=== PATIENT | female | born 1955 | race Caucasian/White ===

== ENCOUNTER 2022-03-12 21:59 | Inpatient (IN) ==
[2022-03-13] MEDS ORDERED: Iopamidol - 370 500 ML MLS IVP ONE (00:11)
[2022-03-13] MEDS ORDERED: *HR* Labetalol 20 MG/4 ML SYRINGE IVP ONE (00:11)
[2022-03-13 00:45] LABS: Basophils # 0.1 K/mcL (0.0-0.2); Basophils % 0.3 %; Eosinophils % 0.1 %; Hematocrit 46.2 % (35.3-44.9); Hemoglobin 16.3 g/dL (11.5-15.4); Immature Granulocytes % 0.4 % (0-4); Lymphocytes # 1.9 K/mcL (0.6-4.6); Lymphocytes % 10.4 %; Mean Corpuscular HGB Conc 35.3 g/dL (31.6-35.5); Mean Corpuscular Hemoglobin 29.9 pg (28.0-33.3); Mean Corpuscular Volume 84.8 fL (83.0-100.0); Mean Platelet Volume 9.3 fL (9.4-12.4); Monocytes % 5.6 %; Neutrophils # 14.8 K/mcL (1.6-8.9); Platelet Count 261 K/mcL (140-400); Red Blood Count 5.45 M/mcL (3.82-4.97); Red Cell Distribution Width 12.1 % (11.5-14.5); Segmented Neutrophils % 83.2 %; White Blood Count 17.8 K/mcL (4.3-11.1)
[2022-03-13 01:06] LABS: INR 1.1; Prothrombin Time 11.8 Seconds (9.4-12.1)
[2022-03-13 01:09] LABS: Activated Partial Thrombo Time 31.8 Seconds (26.0-36.0)
[2022-03-13 01:34] LABS: Albumin 4.4 g/dL (3.5-5.7); Albumin/Globulin Ratio 1.2 (1.1-2.2); Bilirubin,Total 0.6 mg/dL (0.3-1.0); Calcium 9.6 mg/dL (8.6-10.3); Globulin 3.6 g/dL (2.4-3.5); Potassium 3.8 mEq/L (3.5-5.1)
[2022-03-13 04:22] LABS: Bilirubin,Urine Negative (Negative); Blood,Urine Negative (Negative); Clarity,Urine Clear (Clear); Color,Urine Light-Yellow (Yellow); Glucose,Urine (UA) Normal (Normal); Ketones,Urine Negative (Negative); Leukocyte Esterase,Urine Moderate (Negative); Nitrite,Urine Negative (Negative); PH,Urine 6.5 pH Units (5.0-8.0); Protein,Urine 30 mg/dL (Neg-Trace); RBC,Urine 0-3 per hpf (0-3); Specific Gravity,Urine > 1.030 (1.010-1.025); Squamous Epithelial Cell,Urine Few per hpf (None-Few); Urobilinogen,Urine Normal (Normal); WBC,Urine 15-30 per hpf (0-3)
[2022-03-13] MEDS ORDERED: cefTRIAXone 1,000 MG in 0.9 % Sodium Chloride 10 ML IVP ONE (04:47)
[2022-03-13] MEDS ORDERED: 0.9 % Sodium Chloride 1,000 ML IV ONE (04:56)
[2022-03-13] MEDS ORDERED: Perflutren Lipid Microsphere 1.3 ML in 0.9 % Sodium Chloride 8.7 ML IVP PRN (05:09)
[2022-03-13] MEDS ORDERED: Acetaminophen 325 MG TABLET PO PRN (05:09)
[2022-03-13] MEDS ORDERED: Naloxone 0.4 MG/ML INJ IVP PRN (05:13)
[2022-03-13] MEDS ORDERED: Ondansetron ODT 4 MG TAB.RAPDIS SL PRN (05:13)
[2022-03-13] MEDS ORDERED: Melatonin 3 MG TABLET PO PRN (05:13)
[2022-03-13] MEDS ORDERED: 0.9 % Sodium Chloride 1,000 ML IVC SCH (05:15)
[2022-03-13] MEDS ORDERED: *HR* Dextrose 50 % in Water (Syg) 50 ML SYRINGE IVP PRN (05:32)
[2022-03-13] MEDS ORDERED: D5% in Water 1,000 ML IVC PRN (05:32)
[2022-03-13] MEDS ORDERED: Dextrose Gel 15 GM/37.5 ML TUBE PO PRN ×2 (05:32)
[2022-03-13] MEDS ORDERED: *HR* Labetalol 20 MG/4 ML SYRINGE IVP PRN (07:38)
[2022-03-13] MEDS: Insulin LISPRO 300 UNITS/3 ML VIAL SUBQ SCH ×4 (08:59→21:43)
[2022-03-13 09:14] LABS: Magnesium 1.9 mg/dL (1.6-2.6); Phosphorous 3.4 mg/dL (2.7-4.5)
[2022-03-13] MEDS: Aspirin Enteric Coated 81 MG Tablet PO SCH (09:21)
[2022-03-13 09:42] LABS: Folate > 22.3 ng/mL (3.0-16.0); Vitamin B12 268 pg/mL (250-1100)
[2022-03-13 10:32] LABS: Adenovirus Not Detected (Not Detect); Bordetella Pertussis Not Detected (Not Detect); Chlamydophila pneumoniae Not Detected (Not Detect); Coronavirus 229E Not Detected (Not Detect); Coronavirus HKU1 Not Detected (Not Detect); Coronavirus NL63 Not Detected (Not Detect); Coronavirus OC43 Not Detected (Not Detect); Human Metapneumovirus Not Detected (Not Detect); Human Rhinovirus/Enterovirus Not Detected (Not Detect); Influenza A Subtype 2009 H1 Not Detected (Not Detect); Influenza B Not Detected (Not Detect); Mycoplasma pneumoniae Not Detected (Not Detect); Parainfluenza Virus 1 Not Detected (Not Detect); Parainfluenza Virus 2 Not Detected (Not Detect); Parainfluenza Virus 3 Not Detected (Not Detect); Parainfluenza Virus 4 Not Detected (Not Detect); Respiratory Syncytial Virus Not Detected (Not Detect); SARS-CoV-2 Not Detected (Not Detect)
[2022-03-13] MEDS: Acetaminophen 325 MG TABLET PO PRN ×2 (12:08→18:21)
[2022-03-14 03:16] LABS: Hematocrit 40.4 % (35.3-44.9); Mean Corpuscular HGB Conc 34.4 g/dL (31.6-35.5); Mean Corpuscular Hemoglobin 29.3 pg (28.0-33.3); Mean Corpuscular Volume 85.1 fL (83.0-100.0); Mean Platelet Volume 9.7 fL (9.4-12.4); Platelet Count 223 K/mcL (140-400); Red Blood Count 4.75 M/mcL (3.82-4.97); Red Cell Distribution Width 12.1 % (11.5-14.5); White Blood Count 11.7 K/mcL (4.3-11.1)
[2022-03-14 03:19] LABS: Hemoglobin 13.9 g/dL (11.5-15.4)
[2022-03-14 03:44] LABS: Alanine Aminotransferase 68 Units/L (7-52); Albumin 3.8 g/dL (3.5-5.7); Albumin/Globulin Ratio 1.4 (1.1-2.2); Alkaline Phosphatase 65 Units/L (34-104); Aspartate Amino Transferase 78 Units/L (13-39); BUN/Creatinine Ratio 20 (6-26); Bilirubin,Total 0.6 mg/dL (0.3-1.0); Blood Urea Nitrogen 21 mg/dL (8-23); Calcium 8.9 mg/dL (8.6-10.3); Carbon Dioxide 30 mEq/L (23-29); Chloride 98 mEq/L (98-107); Chol/HDL Ratio 3.6 (0-4.9); Cholesterol 167 mg/dL (< 200); Globulin 2.7 g/dL (2.4-3.5); Glucose 113 mg/dL (70-105); HDL Cholesterol 46 mg/dL (40-59); LDL Cholesterol,Calculated 103 mg/dL (< 100); LDL Cholesterol,Direct 111 mg/dL (75-193); Osmolality,Calculated 286 (280-300); Potassium 3.2 mEq/L (3.5-5.1); Sodium 136 mEq/L (136-145); Total Protein 6.5 g/dL (6.4-8.9); Triglycerides 89 mg/dL (< 150); eGFR For African Americans > 60 (> 60); eGFR For Non-African Americans 52 (> 60)
[2022-03-14 07:51] LABS: Estimated Average Glucose 131 mg/dl; Hemoglobin A1C 6.2 %
[2022-03-14] MEDS: Insulin LISPRO 300 UNITS/3 ML VIAL SUBQ SCH ×4 (08:50→21:27)
[2022-03-14] MEDS: Aspirin Enteric Coated 81 MG Tablet PO SCH (08:53)
[2022-03-14] MEDS: cefTRIAXone 1,000 MG in 0.9 % Sodium Chloride Mini Bag 100 ML IVPB SCH (08:53)
[2022-03-14] MEDS ORDERED: Potassium Chloride Elixir 20 MEQ/15 ML UDC PO ONE (12:29)
[2022-03-14] MEDS: hydroCHLOROthiazide 25 MG TABLET PO SCH (12:58)
[2022-03-14] MEDS: lisinopriL 10 MG TABLET PO SCH (12:59)
[2022-03-14] MEDS ORDERED: E-Z-PAQUE (BARIUM SULF) SUSP 1 BOTTLE PO ONE (15:22)
[2022-03-14] MEDS ORDERED: E-Z-HD (BARIUM SULF) SUSPENSION PO ONE (15:22)
[2022-03-15] MEDS: hydroCHLOROthiazide 25 MG TABLET PO SCH (09:40)
[2022-03-15] MEDS: lisinopriL 10 MG TABLET PO SCH (09:40)
[2022-03-15] MEDS: Aspirin Enteric Coated 81 MG Tablet PO SCH (09:40)
[2022-03-15] MEDS: cefTRIAXone 1,000 MG in 0.9 % Sodium Chloride Mini Bag 100 ML IVPB SCH (09:41)
[2022-03-15] MEDS: Insulin LISPRO 300 UNITS/3 ML VIAL SUBQ SCH ×4 (09:43→22:01)
[2022-03-15 10:02] LABS: Basophils # 0.1 K/mcL (0.0-0.2); Basophils % 0.5 %; Eosinophils # 0.2 K/mcL (0.0-0.6); Eosinophils % 1.5 %; Hematocrit 44.8 % (35.3-44.9); Hemoglobin 14.9 g/dL (11.5-15.4); Immature Granulocytes % 0.6 % (0-4); Lymphocytes # 2.9 K/mcL (0.6-4.6); Lymphocytes % 21.5 %; Mean Corpuscular HGB Conc 33.3 g/dL (31.6-35.5); Mean Corpuscular Volume 87.3 fL (83.0-100.0); Mean Platelet Volume 10.1 fL (9.4-12.4); Monocytes % 7.5 %; Neutrophils # 9.1 K/mcL (1.6-8.9); Platelet Count 264 K/mcL (140-400); Red Blood Count 5.13 M/mcL (3.82-4.97); Red Cell Distribution Width 12.4 % (11.5-14.5); Segmented Neutrophils % 68.4 %; White Blood Count 13.3 K/mcL (4.3-11.1)
[2022-03-15 10:22] LABS: Potassium 3.2 mEq/L (3.5-5.1)
[2022-03-15] MEDS ORDERED: Potassium Chloride Elixir 20 MEQ/15 ML UDC PO ONE (12:38)
[2022-03-15] MEDS: Nitrofurantoin (BID) 100 MG CAPSULE PO SCH (16:28)
[2022-03-16 03:44] LABS: Basophils # 0.1 K/mcL (0.0-0.2); Basophils % 0.5 %; Eosinophils # 0.3 K/mcL (0.0-0.6); Eosinophils % 1.9 %; Hematocrit 41.9 % (35.3-44.9); Hemoglobin 13.8 g/dL (11.5-15.4); Immature Granulocytes % 0.6 % (0-4); Lymphocytes # 3.6 K/mcL (0.6-4.6); Mean Corpuscular HGB Conc 32.9 g/dL (31.6-35.5); Mean Corpuscular Hemoglobin 29.4 pg (28.0-33.3); Mean Corpuscular Volume 89.3 fL (83.0-100.0); Mean Platelet Volume 9.2 fL (9.4-12.4); Monocytes % 6.8 %; Platelet Count 275 K/mcL (140-400); Red Blood Count 4.69 M/mcL (3.82-4.97); Red Cell Distribution Width 12.6 % (11.5-14.5); Segmented Neutrophils % 66.2 %; White Blood Count 15.1 K/mcL (4.3-11.1)
[2022-03-16 03:59] LABS: BUN/Creatinine Ratio 17 (6-26); Blood Urea Nitrogen 19 mg/dL (8-23); Calcium 9.1 mg/dL (8.6-10.3); Carbon Dioxide 29 mEq/L (23-29); Chloride 100 mEq/L (98-107); Glucose 125 mg/dL (70-105); Osmolality,Calculated 286 (280-300); Potassium 3.5 mEq/L (3.5-5.1); Sodium 136 mEq/L (136-145); eGFR For African Americans > 60 (> 60); eGFR For Non-African Americans 50 (> 60)
[2022-03-16] MEDS ORDERED: Lidocaine Viscous Oral Soln 15 ML SOLUTION MM PRN (08:43)
[2022-03-16] MEDS ORDERED: *HR* Midazolam HCl 2 MG/2 ML VIAL IVP PRN (08:44)
[2022-03-16] MEDS ORDERED: 0.9 % Sodium Chloride 500 ML IVC ONE (08:44)
[2022-03-16] MEDS ORDERED: cefTRIAXone 1,000 MG in Water for inj. (sterile) 10 ML IVP SCH (09:00)
[2022-03-16] MEDS ORDERED: *HR* Midazolam HCl 5 MG/5 ML VIAL IVP ONE ×2 (09:03→09:04)
[2022-03-16] MEDS: *HR* FentaNYL (PF) 100 MCG/2 ML VIAL IVP PRN ×2 (09:35→09:40)
[2022-03-16] MEDS: Insulin LISPRO 300 UNITS/3 ML VIAL SUBQ SCH ×3 (13:27→21:04)
[2022-03-16] MEDS: lisinopriL 20 MG TABLET PO SCH (13:30)
[2022-03-16] MEDS: hydroCHLOROthiazide 25 MG TABLET PO SCH (13:30)
[2022-03-16] MEDS: Nitrofurantoin (BID) 100 MG CAPSULE PO SCH ×2 (13:30→17:33)
[2022-03-16] MEDS: Aspirin Enteric Coated 81 MG Tablet PO SCH (13:31)
[2022-03-17 03:26] LABS: Basophils # 0.1 K/mcL (0.0-0.2); Basophils % 0.4 %; Eosinophils # 0.1 K/mcL (0.0-0.6); Eosinophils % 0.6 %; Hematocrit 44.9 % (35.3-44.9); Immature Granulocytes % 0.6 % (0-4); Lymphocytes # 2.3 K/mcL (0.6-4.6); Mean Corpuscular HGB Conc 33.4 g/dL (31.6-35.5); Mean Corpuscular Hemoglobin 29.4 pg (28.0-33.3); Mean Corpuscular Volume 87.9 fL (83.0-100.0); Mean Platelet Volume 9.3 fL (9.4-12.4); Monocytes # 1.2 K/mcL (0.0-1.3); Monocytes % 5.1 %; Neutrophils # 18.9 K/mcL (1.6-8.9); Platelet Count 303 K/mcL (140-400); Red Blood Count 5.11 M/mcL (3.82-4.97); Red Cell Distribution Width 12.5 % (11.5-14.5); Segmented Neutrophils % 83.3 %
[2022-03-17 03:29] LABS: White Blood Count 22.7 K/mcL (4.3-11.1)
[2022-03-17 03:45] LABS: BUN/Creatinine Ratio 20 (6-26); Blood Urea Nitrogen 21 mg/dL (8-23); Calcium 9.2 mg/dL (8.6-10.3); Carbon Dioxide 23 mEq/L (23-29); Chloride 98 mEq/L (98-107); Glucose 129 mg/dL (70-105); Osmolality,Calculated 285 (280-300); Potassium 3.6 mEq/L (3.5-5.1); Sodium 135 mEq/L (136-145); eGFR For African Americans > 60 (> 60); eGFR For Non-African Americans 52 (> 60)
[2022-03-17] MEDS: hydroCHLOROthiazide 25 MG TABLET PO SCH (09:02)
[2022-03-17] MEDS: lisinopriL 20 MG TABLET PO SCH (09:02)
[2022-03-17] MEDS: Nitrofurantoin (BID) 100 MG CAPSULE PO SCH (09:02)
[2022-03-17] MEDS: Aspirin Enteric Coated 81 MG Tablet PO SCH (09:02)
[2022-03-17] MEDS: Insulin LISPRO 300 UNITS/3 ML VIAL SUBQ SCH ×4 (09:04→22:21)
[2022-03-17] MEDS: cefTRIAXone 2,000 MG in 0.9 % Sodium Chloride 20 ML IVP SCH (12:36)
[2022-03-17 13:23] LABS: Bilirubin,Urine Negative (Negative); Blood,Urine Negative (Negative); Clarity,Urine Clear (Clear); Color,Urine Light-Yellow (Yellow); Glucose,Urine (UA) Normal (Normal); Ketones,Urine Negative (Negative); Leukocyte Esterase,Urine Negative (Negative); Nitrite,Urine Negative (Negative); PH,Urine 6.5 pH Units (5.0-8.0); Protein,Urine Negative (Neg-Trace); Specific Gravity,Urine 1.013 (1.010-1.025); Urobilinogen,Urine Normal (Normal)
[2022-03-17] MEDS: Acetaminophen 325 MG TABLET PO PRN (19:31)
[2022-03-18 03:29] LABS: Basophils # 0.1 K/mcL (0.0-0.2); Basophils % 0.3 %; Eosinophils # 0.2 K/mcL (0.0-0.6); Hematocrit 41.4 % (35.3-44.9); Hemoglobin 13.8 g/dL (11.5-15.4); Immature Granulocytes % 0.5 % (0-4); Lymphocytes # 2.8 K/mcL (0.6-4.6); Lymphocytes % 18.4 %; Mean Corpuscular HGB Conc 33.3 g/dL (31.6-35.5); Mean Corpuscular Hemoglobin 29.2 pg (28.0-33.3); Mean Corpuscular Volume 87.7 fL (83.0-100.0); Mean Platelet Volume 9.9 fL (9.4-12.4); Monocytes # 0.9 K/mcL (0.0-1.3); Monocytes % 6.1 %; Neutrophils # 11.3 K/mcL (1.6-8.9); Platelet Count 316 K/mcL (140-400); Red Blood Count 4.72 M/mcL (3.82-4.97); Red Cell Distribution Width 12.3 % (11.5-14.5); Segmented Neutrophils % 73.7 %; White Blood Count 15.4 K/mcL (4.3-11.1)
[2022-03-18 03:46] LABS: Albumin 3.8 g/dL (3.5-5.7); Albumin/Globulin Ratio 1.4 (1.1-2.2); Bilirubin,Total 0.5 mg/dL (0.3-1.0); Calcium 9.2 mg/dL (8.6-10.3); Globulin 2.7 g/dL (2.4-3.5); Magnesium 2.2 mg/dL (1.6-2.6); Potassium 3.5 mEq/L (3.5-5.1); Total Protein 6.5 g/dL (6.4-8.9)
[2022-03-18] MEDS: Insulin LISPRO 300 UNITS/3 ML VIAL SUBQ SCH ×4 (07:34→21:00)
[2022-03-18] MEDS: cefTRIAXone 2,000 MG in 0.9 % Sodium Chloride 20 ML IVP SCH (09:17)
[2022-03-18] MEDS: 0.9 % Sodium Chloride 1,000 ML IVC SCH ×2 (09:17→16:50)
[2022-03-18] MEDS: Aspirin Enteric Coated 81 MG Tablet PO SCH (09:17)
[2022-03-19 03:08] LABS: Basophils # 0.1 K/mcL (0.0-0.2); Basophils % 0.5 %; Eosinophils # 0.5 K/mcL (0.0-0.6); Eosinophils % 3.1 %; Hematocrit 39.5 % (35.3-44.9); Immature Granulocytes % 0.4 % (0-4); Lymphocytes # 3.4 K/mcL (0.6-4.6); Lymphocytes % 23.4 %; Mean Corpuscular HGB Conc 32.9 g/dL (31.6-35.5); Mean Corpuscular Hemoglobin 29.4 pg (28.0-33.3); Mean Corpuscular Volume 89.4 fL (83.0-100.0); Mean Platelet Volume 9.6 fL (9.4-12.4); Monocytes # 0.9 K/mcL (0.0-1.3); Monocytes % 6.1 %; Neutrophils # 9.8 K/mcL (1.6-8.9); Platelet Count 306 K/mcL (140-400); Red Blood Count 4.42 M/mcL (3.82-4.97); Red Cell Distribution Width 12.2 % (11.5-14.5); Segmented Neutrophils % 66.5 %; White Blood Count 14.6 K/mcL (4.3-11.1)
[2022-03-19 03:24] LABS: Alanine Aminotransferase 13 Units/L (7-52); Albumin 3.5 g/dL (3.5-5.7); Albumin/Globulin Ratio 1.5 (1.1-2.2); Alkaline Phosphatase 60 Units/L (34-104); Aspartate Amino Transferase 13 Units/L (13-39); BUN/Creatinine Ratio 20 (6-26); Bilirubin,Total 0.4 mg/dL (0.3-1.0); Blood Urea Nitrogen 22 mg/dL (8-23); Calcium 8.2 mg/dL (8.6-10.3); Carbon Dioxide 25 mEq/L (23-29); Chloride 106 mEq/L (98-107); Globulin 2.3 g/dL (2.4-3.5); Glucose 108 mg/dL (70-105); Osmolality,Calculated 290 (280-300); Phosphorous 2.9 mg/dL (2.7-4.5); Potassium 3.5 mEq/L (3.5-5.1); Sodium 138 mEq/L (136-145); Total Protein 5.8 g/dL (6.4-8.9); eGFR For African Americans > 60 (> 60); eGFR For Non-African Americans 50 (> 60)
[2022-03-19] MEDS ORDERED: *HR* Enoxaparin 40 MG/0.4 ML SYRINGE SQ SCH (06:00)
[2022-03-19 07:17] VITALS: O2SAT 96
[2022-03-19] MEDS: cefTRIAXone 2,000 MG in 0.9 % Sodium Chloride 20 ML IVP SCH (08:15)
[2022-03-19] MEDS: Aspirin Enteric Coated 81 MG Tablet PO SCH (08:15)
[2022-03-19] MEDS: Insulin LISPRO 300 UNITS/3 ML VIAL SUBQ SCH ×2 (08:16→11:43)
[2022-03-19 10:38] VITALS: TEMP 98.1
[2022-03-19] MEDS ORDERED: hydroCHLOROthiazide 25 MG TABLET PO ONE (11:30)
[2022-03-19 14:34] VITALS: BP 149/66; PULSE 77
== END 2022-03-19 15:08 | disposition home or self-care (01) | DRG 65 ==
LOC: EMEROOARM 21:59 → 3ANU 21:59 → SUATTDRO 03-13 05:09 → 3ANU 03-13 07:20 → SUATTDRO 03-14 15:41
PROVIDERS: ADMIT Family Medicine; ATTEND Internal Medicine